=== PATIENT | female | born 1945 | race Caucasian/White ===

== ENCOUNTER 2017-02-26 10:59 | Emergency (ER) | payer MEDICARE, OTHER ==
[~2017-02-26] VITALS: Ht 157.5 cm; Wt 81.6 kg
[~2017-02-26 10:59] MED LIST: ATOR20TA64 PO; BENA20TA2 PO; CA C1TAB92 PO; CARV6.2554 PO; CAT.1 PO; CYCL-365 PO; GLIP10TA11 PO; METF-303 PO; MULT-976 PO; [UNRECOGNIZED DRUG - CODE] PO
--- NOTE | 2017-02-26 10:59 | NUR ---
patient placed in bed 5, BIB ambulance and triaged at bedside Ice pack applied to right hand
[2017-02-26 11:00] VITALS: BP 148/82; PULSE 75; RESP 18; TEMP 98.1; O2SAT 98
--- NOTE | 2017-02-26 11:00 | NUR ---
Chikis Mata at bedside examining patient.
[2017-02-26] MEDS ORDERED: ACETAMINOPHEN 500 MG TABLET PO ONE (11:15)
[2017-02-26] MEDS ORDERED: DEXAMETHASONE SOD PHOSPHATE 10 MG/ML VIAL IVP ONE (13:00)
[2017-02-26] MEDS ORDERED: NACL 0.9% 1,000 ML IV ONE (13:00)
[2017-02-26] MEDS ORDERED: ETOMIDATE 20 MG/ 10 ML VIAL (AMIDATE) IVP ONE (13:00)
[2017-02-26] MEDS ORDERED: ONDANSETRON HCL 4 MG/2 ML VIAL IVP ONE (13:00)
--- NOTE | 2017-02-26 13:25 | NUR ---
# 22 gauge angiocath placed to LFA. Use of asceptic technique. Opsite placed over site. Blood return noted. Flushed with 10 cc of normal saline. No evidence of infiltration noted. Patient tolerated well.
--- NOTE | 2017-02-26 14:24 | NUR ---
Daughter called at the request of pt message
--- NOTE | 2017-02-26 14:40 | NUR ---
daughter at bedside discussed plan of care
[2017-02-26] MEDS ORDERED: CLOP75TA2 PO (14:54)
[2017-02-26] MEDS ORDERED: LIDP TP (14:54)
[2017-02-26] MEDS ORDERED: FURO-150 PO (14:54)
--- NOTE | 2017-02-26 14:54 | NUR ---
Spoke with Dr. Hylton discussed plan of care tx to SNF. Delay in reduction of right wrist due to pyxis malfunction.
[2017-02-26] MEDS ORDERED: ETOMIDATE 20 MG/ 10 ML VIAL (AMIDATE) ONE (15:14)
--- NOTE | 2017-02-26 15:45 | NUR ---
Moderate sedation started see Mod Sedation paperwork
[2017-02-26] MEDS ORDERED: MORPHINE 2 MG/ML INJ. SYRINGE IVP ONE (16:00)
--- NOTE | 2017-02-26 16:12 | NUR ---
[facility] PT GOING TO [facility] IN [place] REPORT [phone]
--- NOTE | 2017-02-26 16:59 | NUR ---
Attempted to give report to [facility] spoke to Nurse Regalado who is not aware pt has been admitted to facility. States she will call back for report informed her of my name and phone number and to call when ready for report
--- NOTE | 2017-02-26 17:20 | NUR ---
Pt resting conversing with Daughter at bedside, Pt eating dinner provided by daughter. no s/s of distress at this time. awaiting transport
[2017-02-26 17:53] VITALS: BP 151/61; PULSE 99; RESP 16; TEMP 97.7; O2SAT 99
--- NOTE | 2017-02-26 18:00 | NUR ---
Pt placed on bed crespo approx 400ml pale yellow urine obtained.
--- NOTE | 2017-02-26 18:43 | NUR ---
Report given to Fabricio at [facility] as well as [facility] crew both denied further questions or concerns. Transfer consent signed by patient. VS stable pt A&O x 4 no s/s of distress, denies pain. IV removed catheter intact bleeding controlled bandage applied. Receiving facility has accepting physician and available space. ER physician has signed transfer form. Patient or responsible republican has agreed to transfer and signed form. Patient belongings send home with daughter. Copy of nursing notes, lab reports, Physicians Orders and X-rays to be sent with patient. Pt denied further questions or concerns
== END 2017-02-26 17:53 ==
LOC: SED 10:59
DX: S52.511A Displaced fracture of right radial styloid process, initial encounter for closed fracture (principal); G90.9 Disorder of the autonomic nervous system, unspecified; E11.9 Type 2 diabetes mellitus without complications; I10 Essential (primary) hypertension; Z86.73 Personal history of transient ischemic attack (TIA), and cerebral infarction without residual deficits; Z79.899 Other long term (current) drug therapy; Z88.0 Allergy status to penicillin; W06.XXXA Fall from bed, initial encounter; Y93.89 Activity, other specified; Y92.89 Other specified places as the place of occurrence of the external cause; Y99.8 Other external cause status
CPT/HCPCS: 25605; 73100; 73110; 96361; 96374; 99152; 99285; J1100; J2270; J2405; J3490

== ENCOUNTER 2017-03-29 03:02 | Emergency (ER) | payer OTHER ==
[~2017-03-29] VITALS: Ht 157.5 cm; Wt 81.6 kg
[~2017-03-29 03:02] MED LIST changes: +CLOP75TA2 PO; +FURO-150 PO; +LIDP TP
[2017-03-29 03:05] VITALS: BP_SYST 108
[2017-03-29] MEDS ORDERED: ACETAMINOPHEN 325 MG TABLET PO ONE (04:00)
[2017-03-29 06:35] VITALS: BP_SYST 118
== END 2017-03-29 06:35 | disposition home or self-care (01) ==
LOC: SED 03:02
DX: S40.012A Contusion of left shoulder, initial encounter (principal); S50.02XA Contusion of left elbow, initial encounter; E11.9 Type 2 diabetes mellitus without complications; I10 Essential (primary) hypertension; Z86.73 Personal history of transient ischemic attack (TIA), and cerebral infarction without residual deficits; Z88.0 Allergy status to penicillin; Z79.899 Other long term (current) drug therapy; W19.XXXA Unspecified fall, initial encounter; Y93.89 Activity, other specified; Y92.89 Other specified places as the place of occurrence of the external cause; Y99.8 Other external cause status
CPT/HCPCS: 71100; 73030; 99284